=== PATIENT | female | born 1975 | race African-American/Black ===

== ENCOUNTER 2019-12-05 12:25 | Observation (INO) ==
[2019-12-05] MEDS ORDERED: MORPHINE 4 MG/1 ML VIAL IV STA (13:24)
[2019-12-05] MEDS ORDERED: ASPIRIN 325 MG TABLET PO STA (13:24)
[2019-12-05] MEDS ORDERED: ONDANSETRON 4 MG/2 ML VIAL IV STA (13:24)
[2019-12-05] MEDS: NITROGLYCERIN 2% OINT 1 INCH/GM PACK TOP STA ×2 (14:00→17:57)
[2019-12-05 14:01] LABS: PT Patient Result 10.4 SECS (9.6-12.2)
[2019-12-05] MEDS: METHOCARBAMOL 1,000 MG/10 ML VIAL IV STA ×2 (14:02→17:57)
[2019-12-05 14:10] LABS: Albumin 3.9 G/DL (3.4-5.0); Bilirubin,Total 0.7 MG/DL (0.2-1.0); Calcium 9.1 MG/DL (8.5-10.1); Osmolality,Calculated 260.8 MOS/KG (273-304); Total Protein 8.5 G/DL (6.4-8.3)
[2019-12-05 14:22] LABS: Basophils # 0.1 10*3/uL (0.0-0.2); Basophils % 0.7 % (0.0-0.8); Eosinophils % 0.2 % (0.00-10.9); Immature Granulocytes % 0.4 %; Immature Granulocytes Absolute 0.04 #; Lymphocytes # 2.4 10*3/uL (1.4-4.0); Lymphocytes % 26.8 % (21.3-54.2); Mean Corpuscular HGB Conc 25.2 GM/DL (32-36); Mean Corpuscular Volume 64.1 FL (87-102); Mean Platelet Volume 10.8 FL (9.6-12.0); Monocytes % 5.9 % (1.7-12.7); NRBC # 0.03 10*3/uL; Platelet Count 392 T/CUMM (130-400); Red Blood Count 3.34 MC/CUMM (3.8-5.5); Red Cell Distribution Width 21.1 % (9.3-17.3)
[2019-12-05 14:27] LABS: Hematocrit 21.4 VOL% (35.7-47.0); Hemoglobin 5.4 GM/DL (12.0-16.0)
[2019-12-05 14:34] LABS: Hypochromasia 2+; Microcytosis 2+; Platelet Estimate Normal; Target Cells Few
[2019-12-05 14:35] LABS: Ovalocytes Few; Tear Drop Cells Few
[2019-12-05 14:36] LABS: Anisocytosis Slight
[2019-12-05] MEDS ORDERED: PROMETHAZINE 25 MG TABLET PO PRN (15:20)
[2019-12-05] MEDS ORDERED: ONDANSETRON 4 MG/2 ML VIAL IV PRN (15:20)
[2019-12-05] MEDS ORDERED: ACETAMINOPHEN 325 MG TABLET PO PRN (15:20)
[2019-12-05] MEDS ORDERED: SODIUM CHLORIDE 0.9% 1,000 ML IV PRN (15:22)
[2019-12-05 16:09] LABS: Thyroid Stimulating Hormone 1.49 uIU/ml (0.358-3.74)
[2019-12-05 16:43] LABS: % Iron Saturation 3.8 % (18-50)
[2019-12-05 17:22] LABS: Basophils # 0.1 10*3/uL (0.0-0.2); Basophils % 0.5 % (0.0-0.8); Eosinophils # 0.1 10*3/uL (0.0-0.87); Eosinophils % 0.6 % (0.00-10.9); Hematocrit 21.8 VOL% (35.7-47.0); Immature Granulocytes % 0.3 %; Immature Granulocytes Absolute 0.03 #; Lymphocytes # 2.8 10*3/uL (1.4-4.0); Lymphocytes % 28.8 % (21.3-54.2); Mean Corpuscular HGB Conc 25.2 GM/DL (32-36); Mean Corpuscular Volume 64.1 FL (87-102); Mean Platelet Volume 10.2 FL (9.6-12.0); Monocytes % 6.4 % (1.7-12.7); NRBC # 0.02 10*3/uL; Neutrophils % 63.4 % (38.7-73.9); Platelet Count 357 T/CUMM (130-400); Red Cell Distribution Width 20.9 % (9.3-17.3); White Blood Count 9.8 T/CUMM (4-12)
[2019-12-05 17:24] LABS: Hemoglobin 5.5 GM/DL (12.0-16.0)
[2019-12-05 17:27] LABS: Folate > 24.0 NG/ML (5.4-24.0); Vitamin B12 294 PG/ML (211-911)
[2019-12-05] MEDS: IRON SUCROSE 200 MG in SODIUM CHLORIDE 0.9% 100 ML IV SCH (17:58)
[2019-12-05] MEDS: KETOROLAC 30 MG/1 ML VIAL IV STA ×2 (17:58→18:31)
[2019-12-05 18:06] LABS: Anisocytosis 1+; Hypochromasia 2+; Microcytosis 2+; Ovalocytes Few; Platelet Estimate Normal; Target Cells Few; Tear Drop Cells Few
[2019-12-05 18:10] LABS: Sedimentation Rate-Westergren 77 MM/HR (0-20)
[2019-12-06 08:23] LABS: Hemoglobin A1 (Alkaline) 97.7 % (96.5-98.5); Hemoglobin A2 (Alkaline) 2.3 % (1.5-3.5)
[2019-12-06] MEDS ORDERED: PANTOPRAZOLE 40 MG TABLET PO SCH (09:00)
[2019-12-06] MEDS: IRON SUCROSE 200 MG in SODIUM CHLORIDE 0.9% 100 ML IV SCH (10:47)
[2019-12-06 11:33] LABS: Albumin 3.4 G/DL (3.4-5.0); Bilirubin,Total 1.1 MG/DL (0.2-1.0); Calcium 9.2 MG/DL (8.5-10.1); Osmolality,Calculated 270.8 MOS/KG (273-304); Risk Ratio 2.4; Total Protein 8.8 G/DL (6.4-8.3); VLDL CHOLESTEROL 12.6 MG/DL
[2019-12-06 11:53] LABS: Basophils # 0.1 10*3/uL (0.0-0.2); Basophils % 0.8 % (0.0-0.8); Eosinophils # 0.1 10*3/uL (0.0-0.87); Eosinophils % 1.3 % (0.00-10.9); Hematocrit 31.6 VOL% (35.7-47.0); Immature Granulocytes % 0.4 %; Immature Granulocytes Absolute 0.03 #; Lymphocytes % 26.3 % (21.3-54.2); Mean Corpuscular HGB Conc 28.5 GM/DL (32-36); Mean Corpuscular Volume 71.5 FL (87-102); Mean Platelet Volume 9.8 FL (9.6-12.0); Monocytes % 8.1 % (1.7-12.7); NRBC # 0.04 10*3/uL; Neutrophils % 63.1 % (38.7-73.9); Platelet Count 290 T/CUMM (130-400); Red Cell Distribution Width 25.2 % (9.3-17.3); White Blood Count 7.4 T/CUMM (4-12)
[2019-12-06 12:00] LABS: Red Blood Count 4.42 MC/CUMM (3.8-5.5)
[2019-12-06 12:08] LABS: Hypochromasia 4+; Microcytosis 4+
[2019-12-06 12:09] LABS: Ovalocytes Few; Platelet Estimate Normal; Polychromasia Slight; Stomatocytes Few
[2019-12-06 12:42] VITALS: BP 138/81
== END 2019-12-06 13:59 | disposition home or self-care (01) ==
LOC: N.EDINP 12:25 → N.ED 12:25 → N.2W 16:10
PROVIDERS: ADMIT Internal Medicine; ATTEND Internal Medicine